=== PATIENT | female | born 1995 | race Caucasian/White ===

== ENCOUNTER 2018-04-26 12:50 | Emergency (ER) | payer BC, OTHER ==
[2018-04-26] MEDS: ONDANSETRON (ODT) 4 MG TAB ODT (16:02)
[2018-04-26] MEDS: LORAZEPAM 1 MG TAB PO (16:19)
[2018-04-26 16:31] LABS: URINE BLOOD (Dip) POC 3+ (NEGATIVE); URINE GLUCOSE (Dip) POC Negative (NEGATIVE); URINE KETONES (Dip) POC 4+ (NEGATIVE); URINE LEUKOCYTE EST (Dip) POC Negative (NEGATIVE); URINE NITRITE (Dip) POC Negative (NEGATIVE); URINE TOTAL PROTEIN POC 1+ (NEGATIVE)
== END 2018-04-26 16:54 | disposition home or self-care (01) ==
LOC: E/R 12:50 → FTE 16:54
DX: T14.90XA Injury, unspecified, initial encounter (principal); R11.2 Nausea with vomiting, unspecified; W57.XXXA Bitten or stung by nonvenomous insect and other nonvenomous arthropods, initial encounter; Y92.59 Other trade areas as the place of occurrence of the external cause; Z87.891 Personal history of nicotine dependence
CPT/HCPCS: 81003; 81025; 99283